=== PATIENT | male | born 1985 | race Caucasian/White ===

== ENCOUNTER 2023-11-21 19:43 | Inpatient (IN) | payer BC ==
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
[2023-11-21 22:23] LABS: Amphetamine Screen,Urine Not Detected (NotDetected); Barbiturate Screen,Urine Not Detected (NotDetected); Benzodiazepines Screen,Urine Not Detected (NotDetected); Cocaine Screen,Urine Not Detected (NotDetected); Methadone Screen, Urine Not Detected (NotDetected); Opiate Screen,Urine Not Detected (NotDetected); Oxycodone Screen, Urine Not Detected (NotDetected); Phencyclidine Screen,Urine Not Detected (NotDetected); Tricyclic Antidepressant,Urine Not Detected (NotDetected); Urn Cannabinoid Scrn Not Detected (NotDetected)
[2023-11-22] MEDS ORDERED: HALOPERIDOL LACTATE 5 MG/ML 1 ML VIAL IM PRN (05:17)
[2023-11-22] MEDS ORDERED: MAGNESIUM HYDROXIDE 2,400 MG/30 ML CUP PO PRN (05:17)
[2023-11-22] MEDS ORDERED: LORazepam 2 MG/ML INJ IM PRN (05:17)
[2023-11-22] MEDS ORDERED: MAG HYDROX/AL HYDROX/SIMETH 355 ML BOTTLE PO PRN (08:00)
[2023-11-22] MEDS: diphenhydrAMINE 50 MG/ML 1 ML VIAL IM STA (09:04)
[2023-11-22] MEDS: LORazepam 2 MG/ML INJ IM STA (09:05)
[2023-11-22] MEDS: HALOPERIDOL LACTATE 5 MG/ML 1 ML VIAL IM STA (09:05)
[2023-11-22] MEDS: NICOTINE 14MG/24HR PATCH TRANSDERM SCH (09:57)
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
[2023-11-22] MEDS: ESCITALOPRAM 5 MG TAB PO SCH (13:10)
[2023-11-22 13:19] LABS: Basophils % (A) 0 %; Eosinophils # (A) 0.2 k/uL (0-0.7); Eosinophils % (A) 2 %; HCT 48.5 % (39.0-53.0); HGB 15.9 gm/dL (13.0-17.5); Lymphocytes # (A) 1.7 k/uL (1.0-4.8); Lymphocytes % (A) 23 %; MCH 31.7 pg (25.0-35.0); MCHC 32.8 g/dL (31.0-37.0); MCV 96.5 fL (80.0-100.0); Mean Platelet Volume 7.4; Monocytes # (A) 0.4 k/uL (0-1.0); Monocytes % (A) 6 %; Neutrophils # (A) 4.9 k/uL (1.3-7.7); Neutrophils % (A) 67 %; Platelet Count 398 k/uL (150-450); RBC 5.02 m/uL (4.30-5.90); RDW 12.3 % (11.5-15.5); WBC 7.4 k/uL (3.8-10.6)
[2023-11-22 13:44] LABS: ALT 22 U/L (4-49); AST 41 U/L (17-59); African American GFR (CKD) >90 (>60 ml/min/1.73 sqM); Albumin 4.4 g/dL (3.5-5.0); Alkaline Phosphatase 88 U/L (38-126); Anion Gap 6 mmol/L; Blood Urea Nitrogen 9 mg/dL (9-20); Calcium 9.9 mg/dL (8.4-10.2); Carbon Dioxide 23 mmol/L (22-30); Chloride 111 mmol/L (98-107); Glucose 85 mg/dL (74-99); Non-African American GFR(CKD) >90 (>60 ml/min/1.73 sqM); Potassium 4.4 mmol/L (3.5-5.1); Sodium 140 mmol/L (137-145); Total Bilirubin 0.9 mg/dL (0.2-1.3)
[2023-11-22 19:52] LABS: Chol/HDL Ratio 2.89 Ratio; LDL Cholesterol,Calculated 75.6 mg/dL (0.0-131.0)
[2023-11-22] MEDS: traZODone HCL 50 MG TAB PO SCH (21:34)
--- NOTE | 2023-11-23 11:06 | P.PN ---
Progress Note - Text Progress Note Date: 11/23/23 Interval History: Patient was seen wandering the hallways and was directable and agreeable to sp mayi with brief writer in the office. patient was less irritable today. Patient states that he is all right today. He has been taking his medication. He is denying any withdraw symptoms from alcohol. He claims that he slept well last night, and his appetite is increasing. He remains fairly concrete. The petition and certs were faxed to the court yesterday, 11/21, will await deferral and/or court hearing. At this time patient denies any suicidal or homicidal ideations, intent or plan. Patient denies any auditory, visual hallucinations and denies any paranoia or delusions. Patient denies any side effects from the medications and has been compliant with meds. MENTAL STATUS EXAM: General Appearance: Patient appears to be older than stated age is alert, directable, and attempts to cooperate. Patient appears to have improved hygiene and grooming. Has short hair, unshaven face, and a black and blue eye. Wearing casual clothing. Behavior: Patient is seated without any agitated behavior. Evasive, minimizing. concrete Speech: Patient's speech is fluent and nonpressured. flat Mood/Affect: Patient reports their mood is "all right", affect is congruent and constricted. Suicidality/Homicidality: Patient denies having any homicidal ideation intent or plan. [Denies any suicidal ideations intent or plan Perceptions: Patient denies any visual hallucinations [and denies any auditory hallucinations Though content/process: There is no evidence of any delusional thought content and thought process is guarded and minimizing his situation. Memory and concentration: AOX3, grossly intact for the purposes of this session. Judgment and insight: poor IMPRESSIONS: depressive disorder, unspecified marital problems alcohol abuse disorder, severe nicotine dependance cannabis use disorder PLAN: -Patient is admitted under involuntary status to MHU for stabilization of psychiatric symptoms and safety. Patient has not signed adult voluntary form or medication consent and is placed in patient's chart. A second certification was completed and along with petition will be filed for court. -Medications : increase Lexapro 10mg daily for mood/anxiety, trazodone 50mg qhs for mood/sleep, decrease Librium 10mg qid, for alcohol withdraw, with plan to taper down. -Ativan and Haldol PRN for agitation/aggression -thiamine, MVM for etoh use -CIWA protocol with Ativan PRN for ETOH withdrawal -NRT - nicotine patch -SW on board for discharge planning. Encourage patient to participate in groups to work on coping skills. Will await deferral and court date. hopeful for discharge early next week if patient is improving.
[2023-11-23] MEDS: LORazepam 1 MG TAB PO PRN (20:58)
[2023-11-24] MEDS: ESCITALOPRAM 10 MG TAB PO SCH (09:04)
--- NOTE | 2023-11-24 11:53 | P.PN ---
Progress Note - Text Progress Note Date: 11/24/23 Interval History: Patient was seen in group, and was directable and agreeable to speak with chief writer in the office. Patient states that he is good today. He has been taking his medication. He is denying any withdraw symptoms from alcohol. He claims that he slept well last night, and his appetite is increasing. The petition and certs were faxed to the court, 11/21, will await deferral and/or court hearing. At this time patient denies any suicidal or homicidal ideations, intent or plan. Patient denies any auditory, visual hallucinations and denies any paranoia or delusions. Patient denies any side effects from the medications and has been compliant with meds. MENTAL STATUS EXAM: General Appearance: Patient appears to be older than stated age is alert, directable, and cooperative. Patient appears to have improved hygiene and grooming. Has short hair, unshaven face, and a black and blue eye. Wearing casual clothing. Behavior: Patient is seated without any agitated behavior. mildly improving Speech: Patient's speech is fluent and nonpressured. Mood/Affect: Patient reports their mood is "good", affect is congruent and constricted. Suicidality/Homicidality: Patient denies having any homicidal ideation intent or plan. Denies any suicidal ideations intent or plan Perceptions: Patient denies any visual hallucinations [and denies any auditory hallucinations Though content/process: There is no evidence of any delusional thought content and thought process is guarded and minimizing his situation.mildly improving Memory and concentration: AOX3, grossly intact for the purposes of this session. Judgment and insight: mildly improving IMPRESSIONS: depressive disorder, unspecified marital problems alcohol abuse disorder, severe nicotine dependance cannabis use disorder PLAN: -Patient is admitted under involuntary status to MHU for stabilization of psychiatric symptoms and safety. Patient has not signed adult voluntary form or medication consent and is placed in patient's chart. A second certification was completed and along with petition will be filed for court. -Medications : Lexapro 10mg daily for mood/anxiety, trazodone 50mg qhs for mood/sleep, decrease Librium 10mg tid, for alcohol withdraw, with plan to taper down, last dose being Monday, 11/25 -Ativan and Haldol PRN for agitation/aggression -thiamine, MVM for etoh use -d/c CIWA -NRT - nicotine patch -SW on board for discharge planning. Encourage patient to participate in groups to work on coping skills. Will await deferral and court date. hopeful for discharge after patient defers with his family law attorney, hopeful for monday or monday d/c.
[2023-11-25] MEDS: NICOTINE 21MG/24HR PATCH TRANSDERM SCH (13:28)
--- NOTE | 2023-11-25 18:54 | P.HPMEDMHU ---
History of Present Illness H&P Date: 11/25/23 Patient is a 38 y old male with no significant past medical history only in mental health unit for depression. [facility] physicians consulted for medical management. Vital signs within normal limits. Laboratory workup shows unremarkable CBC, CMP unremarkable, creatinine 0.59, A1c 5.2, total cholesterol 157, LDL 75.6, urine tox negative, COVID-negative. Patient smokes 3 packs/day, occasional marijuana use, occasional alcohol use. Currently denies any chest pain, shortness of breath, abdominal pain, urinary or bowel complaints Pertinent positives and negatives as discussed in HPI, a complete review of systems was performed and all other systems are negative. Patient seen and examined at bedside. Vital signs reviewed General: nontoxic, no distress, appears at stated age Derm: warm, dry Head: atraumatic, normocephalic, symmetric Eyes: EOMI, no lid lag, anicteric sclera, pupils equal round reactive to light ENT: Nose and ears atraumatic Neck: No thyromegaly, supple Mouth: no lip lesion, mucus membranes moist Cardiovascular: S1S2 reg, no murmur, no edema Lungs: clear to auscultation bilateral, no rhonchi, no rales, no wheeze, no accessory muscle use Abdominal: soft, nontender to palpation, no guarding, no appreciable organomegaly Ext: no gross muscle atrophy, muscle strength muscle strength 5 out of 5 in all 4 extremities, no contractures Neuro: CN II-XII grossly intact Psych: Alert, oriented, appropriate affect Assessment/Plan: Active: Nicotine dependence -Counseled regarding smoking cessation -Nicotine patch 21 mg daily Major depression -Management per psychiatry Thank you for allowing us to participate in the care of this pleasant patient. Do not hesitate to contact us with questions. Someone can be reached from the [facility] hospitalist group all hours of the day at [phone] or via [employer]. Past Medical History Past Medical History: No Reported History History of Any Multi-Drug Resistant Organisms: None Reported Additional Past Surgical History / Comment(s): hernia surgery Past Psychological History: Anxiety Smoking Status: Current every day smoker Past Alcohol Use History: Abuse, Daily Past Drug Use History: Marijuana Medications and Allergies Allergies Allergy/AdvReac Type Severity Reaction Status Date / Time No Known Allergies Allergy Verified 11/21/23 19:49 Physical Exam Vitals: Vital Signs Temp Pulse Resp BP Pulse Ox 11/25/23 06:00 97.7 F 80 16 130/68 95 Intake and Output 11/25/23 11/25/23 11/25/23 06:59 14:59 22:59 Other: Weight 71.214 kg Cranial Nerve Examination - Cranial Nerves Cranial Nerve II- Optic: Intact Cranial Nerve III- Oculomotor: Intact Cranial Nerve IV- Trochlear: Intact Cranial Nerve V- Trigeminal: Intact Cranial Nerve - Abducens: Intact Cranial Nerve VII- Facial: Intact Cranial Nerve VIII- Auditory: Intact Cranial Nerve IX- Glossopharyngeal: Intact Cranial Nerve X- Vagus: Intact Cranial Nerve XI- Accessory: Intact Cranial Nerve XII- Hypoglossal: Intact Results CBC & Chem 7: 11/22/23 11:59 11/22/23 11:59 Thrombosis Risk Factor Assmnt - Choose All That Apply Any of the Below Risk Factors Present?: No Other Risk Factors: No Other congenital or acquired thrombophilia - If yes, enter type in comment: No Thrombosis Risk Factor Assessment Level: Very Low Risk
[2023-11-25] MEDS: haloperidoL 5 MG TAB PO PRN (20:42)
[2023-11-26 08:45] VITALS: RESP 17; TEMP 97.4
[2023-11-26] MEDS: IBUPROFEN 600 MG TAB PO PRN (16:34)
--- NOTE | 2023-11-26 21:31 | P.PN ---
Progress Note - Text Progress Note Date: 11/25/23 Interval history: Patient was seen wandering the hallways and was directable and agreeable to speak with administrative underwriter. At this time patient denies any suicidal or homicidal ideation, intent or plan. Denies any auditory or visual hallucinations. Patient denies any side effects from the medications and has been compliant with meds. No signs of alcohol withdrawal observed so we discussed tapering down his Librium with plan to discontinue. Mental status exam: General Appearance: Patient appears to be stated age is alert, directable, and cooperative. Behavior: No agitated behavior. Patient is calm and directable Speech: Patient's speech is fluent and nonpressured. Mood/Affect: Mood is improving mildly, affect is congruent and constricted. Suicidality/Homicidality: Patient denies having any suicidal or homicidal ideation intent or plan. Perceptions: Patient denies any auditory or visual hallucinations. Though content/process: There is no evidence of any delusional thought content and thought process is linear and goal-directed. Memory and concentration: AOX3, grossly intact for the purposes of this session Judgment and insight: improving mildly Assessment/Plan: Continue with current diagnosis. Patient continues to meet criteria for inpatient psychiatric admission for symptom stabilization and safety. Decrease Librium to 10 mg BID for alcohol withdrawal, with plan to discontinue tomorrow. Monitor for medication compliance and for any psychotropic medication side effects. Will continue to monitor ongoing response to treatment. Encouraged participation in milieu.
--- NOTE | 2023-11-26 21:33 | P.PN ---
Progress Note - Text Progress Note Date: 11/26/23 Interval history: Patient was directable and agreeable to speak with check writer salesperson. At this time patient denies any suicidal or homicidal ideation, intent or plan. Denies any auditory or visual hallucinations. Patient denies any side effects from the medications and has been compliant with meds. No signs of alcohol withdrawal observed so we discussed discontinuing the Librium. He is hopeful for discharge tomorrow (Monday) since he has a court date for a UTI on Monday. Mental status exam: General Appearance: Patient appears to be stated age is alert, directable, and cooperative. Behavior: No agitated behavior. Patient is calm and directable Speech: Patient's speech is fluent and non-pressured. Mood/Affect: Mood is "good", affect is congruent and constricted. Suicidality/Homicidality: Patient denies having any suicidal or homicidal ideation intent or plan. Perceptions: Patient denies any auditory or visual hallucinations. Though content/process: There is no evidence of any delusional thought content and thought process is linear and goal-directed. Memory and concentration: AOX3, grossly intact for the purposes of this session Judgment and insight: improving mildly Assessment/Plan: Continue with current diagnosis. Patient continues to meet criteria for inpatient psychiatric admission for symptom stabilization and safety. Discontinue Librium. Monitor for medication compliance and for any psychotropic medication side effects. Will continue to monitor ongoing response to treatment. Encouraged participation in milieu. He is hopeful for discharge on Monday.
[2023-11-27 06:37] VITALS: BP 133/84; PULSE 71
[2023-11-27] MEDS: ACETAMINOPHEN TAB 325 MG TAB PO PRN (09:02)
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
== END 2023-11-27 14:38 | disposition home or self-care (01) | DRG 881 ==
LOC: EC 19:43 → 3MHU 11-22 05:13
PROVIDERS: ADMIT Psychiatry & Neurology Psychiatry; ATTEND Psychiatry & Neurology Psychiatry
DX: F32.A Depression, unspecified (principal); R45.851 Suicidal ideations; F10.239 Alcohol dependence with withdrawal, unspecified; F12.10 Cannabis abuse, uncomplicated; Z11.52 Encounter for screening for COVID-19; Z28.310 Unvaccinated for COVID-19; F41.9 Anxiety disorder, unspecified; F17.210 Nicotine dependence, cigarettes, uncomplicated; Z71.6 Tobacco abuse counseling; Z63.0 Problems in relationship with spouse or partner; Z71.41 Alcohol abuse counseling and surveillance of alcoholic; Z71.51 Drug abuse counseling and surveillance of drug abuser; Y04.0XXA Assault by unarmed brawl or fight, initial encounter
CPT/HCPCS: 80053; 80061; 80306; 82075; 83036; 84443; 85025; 87635; 99285